=== PATIENT | male | born 1945 | race Caucasian/White ===

== ENCOUNTER → 2022-01-03 10:18 | Outpatient (BNVA) | payer OTHER, MEDICARE, SELFPAY | PROVIDERS: PCP Physician Assistant; Visit Provider Urology | DX: R35.1 Nocturia (principal); N40.1 Benign prostatic hyperplasia with lower urinary tract symptoms; N13.8 Other obstructive and reflux uropathy; Z87.891 Personal history of nicotine dependence; Z88.1 Allergy status to other antibiotic agents; Z88.0 Allergy status to penicillin; Z88.8 Allergy status to other drugs, medicaments and biological substances | CPT/HCPCS: 51798; 99212 ==

== ENCOUNTER → 2022-02-13 11:51 | Outpatient (BNVA) | payer OTHER, SELFPAY | PROVIDERS: PCP Physician Assistant; Visit Provider Urology | DX: N40.1 Benign prostatic hyperplasia with lower urinary tract symptoms (principal) ==

== ENCOUNTER → 2022-02-18 09:35 | Day surgery (SDC) | payer OTHER, SELFPAY ==
--- NOTE | 2022-02-15 12:13 | HO.ANESPROP2 ---
HPI - Anesthesia Eval Consult details Narrative: 76yo M for Laser Ablation Prostate w/Green Light PMFSH Active Problems Active Problems: All Active Problems (Updated 02/12/22 @ 15:56 by Anuja Decker RN) ERNIE (generalized anxiety disorder) (Acute) GERD (gastroesophageal reflux disease) (Acute) Screening for diabetes mellitus (DM) (Acute) Screening for hypercholesterolemia (Acute) Screening for hypothyroidism (Acute) BPH associated with nocturia (Acute) Past Medical History Medical History Anxiety Bifascicular block BPH (benign prostatic hyperplasia) GERD (gastroesophageal reflux disease) Hyperlipidemia Family History Family History Mother No problems noted. Father Substance abuse Surgical History Surgical History History of appendectomy History of cataract surgery History of foot surgery Hx of colonoscopy Hx of hemorrhoidectomy Social History Social History Housing: Condominium Alcohol intake: current Alcohol intake frequency: a few times a month Patient Tobacco Use Status: Former Tobacco user e-Cigarette/Vaping Use: Never Used Second Hand Smoke Exposure: No service: Yes ([employer]) Current occupational status: retired Meds Allergies Allergy/AdvReac Type Severity Reaction Status Date / Time omeprazole [OMEPRAZOLE] Allergy Unknown Diarrhea Verified 02/13/22 12:25 penicillin V Allergy Unknown childhood Verified 02/13/22 12:25 allergy Home Medications Medication Instructions Recorded Confirmed Last Taken Type clonazepam 0.5 mg tablet 0.25 mg PO BID 12/12/20 02/13/22 Unknown History doxepin 100 mg capsule 100 mg PO BEDTIME cap 12/12/20 02/13/22 Unknown History finasteride 5 mg tablet 5 mg PO DAILY 12/12/20 02/13/22 Unknown History pantoprazole 40 mg tablet,delayed 40 mg PO DAILY 12/12/20 02/13/22 Unknown History release trazodone 100 mg tablet 200 mg PO BEDTIME PRN tab 12/12/20 02/13/22 Unknown History Exam Exam Date and Time: February 15, 2022 1213 Narrative Narrative: ECHO 2019 Nml LV systolic function Gr 1 DD Cardiac valves wnl RV systolic pressure is normal No pericardial effusion Assessment and Plan Assessment Anesthesia Assessment: Chart Reviewed
== END ==
PROVIDERS: PCP Physician Assistant; Visit Provider Urology
DX: N40.1 Benign prostatic hyperplasia with lower urinary tract symptoms (principal); Z53.09 Procedure and treatment not carried out because of other contraindication
CPT/HCPCS: J3010

== ENCOUNTER 2024-05-26 10:30 | Outpatient (REF) | payer MEDICARE, SELFPAY ==
[2024-05-26 11:00] LABS: Hematocrit 47.5 % (42.0-52.0); Hemoglobin 16.2 g/dl (14.0-18.0); Mean Corpuscular HGB Conc 34.1 g/dl (31.0-36.0); Mean Corpuscular Hemoglobin 30.8 pg (27.0-33.0); Mean Corpuscular Volume 90.3 fL (80.0-98.0); Mean Platelet Volume 9.3 fL (9.4-12.4); Platelet Count 230 X10*3/uL (160-400); Red Blood Count 5.26 X10*6/uL (4.60-5.80); Red Cell Distribution Width 13.1 % (11.0-16.0); White Blood Count 5.1 X10*3/uL (4.8-10.8)
[2024-05-26 11:53] LABS: Alanine Aminotransferase 19 U/L (0-40); Albumin Level 4.1 g/dL (3.5-5.0); Alkaline Phosphatase 92 U/L (39-117); Anion Gap 9 (12-20); Aspartate Amino Transferase 18 U/L (5-37); Bilirubin Total 0.8 mg/dL (0.0-1.0); Blood Urea Nitrogen 20 mg/dL (9-16); Calcium 9.6 mg/dL (8.4-10.2); Carbon Dioxide 29 mmol/L (22-29); Chloride 107 mmol/L (96-108); Estimated Glomerular Filt Rate > 60; Glucose Fasting 101 mg/dL (60-99); Potassium 4.3 mmol/L (3.3-5.1); Sodium 141 mmol/L (135-145); Total Protein 6.9 g/dL (6.5-8.0)
[2024-05-26 12:05] LABS: Prostate Specific Antigen Scr 2.58 ng/mL (<0.05-4.0)
== END 2024-05-26 10:31 | disposition home or self-care (01) ==
LOC: HO.LAB 10:30
PROVIDERS: PCP Physician Assistant; Visit Provider Physician Assistant
DX: Z13.1 Encounter for screening for diabetes mellitus (principal); K21.9 Gastro-esophageal reflux disease without esophagitis; Z12.5 Encounter for screening for malignant neoplasm of prostate
CPT/HCPCS: 36415; 80053; 84153; 85027

== ENCOUNTER 2024-06-02 14:32 | Outpatient (AMB) | payer MEDICARE, SELFPAY ==
--- NOTE | 2024-06-02 14:46 | A.OFFVIS_ITS ---
Intake Vital Signs 06/02/24 14:47 Height 5 ft 9.5 in Weight 140 lb 4 oz BMI 20.4 BP 102/58 L Blood Pressure Location Lt brachial Position Sitting Pulse 78 Pulse Source Pulse Oximeter Pulse Oximetry (%) 98 Oxygen Delivery Method Room Air Intake Visit Reasons: AWV [place] Required: No Accompanied by: Self / Same As Patient Allergies omeprazole [OMEPRAZOLE] Allergy (Unknown, Verified 06/02/24 14:49) Diarrhea penicillin V Allergy (Unknown, Verified 06/02/24 14:49) childhood allergy Medication List - Last Reconciled 06/02/24 by Curly Gruber PA-C finasteride 5 mg PO DAILY trazodone 200 mg PO BEDTIME PRN HPI AWV HPI Details PATIENT IS A 78-YEAR-OLD MALE HERE TODAY FOR ANNUAL WELLNESS VISIT. PATIENT HAS A PAST MEDICAL HISTORY SIGNIFICANT FOR GERD, GENERALIZED ANXIETY DISORDER AND BPH. Today we discussed his [place] of care and end of life planning. Today we reviewed his comprehensive care plan that was placed into the document Vaccines: Up-to-date with pneumonia, tetanus, shingles and COVID vaccine. Considering flu vaccine this year Colorectal cancer screening: Done in 2013 normal repeat 10 years- has upcoming appointment for repeat colonoscopy with Dr. Aleman HPI Comments History of Present Illness Details reviewed past medical history- yes reviewed surgical / hospitalization history- yes reviewed current medications- yes reviewed family history- yes home safety throw rugs? grab bars? raised toilet seat? working smoke detectors? activities of daily living difficulty bathing or showering? difficulty dressing? difficulty using the toilet? difficulty getting in and out of bed? difficulty walking? receives help from other person's with any of the above tasks? instrumental activities of daily living uses telephone - gets to place out of walking distance- go shopping for groceries- repairs own meals- does own minor home maintenance- does own laundry- does own housework- manages own money- currently takes medication- end of life planning discussed advanced directives- yes advanced directives on file? discussed wishes expressed in advanced directives. fall risk have you had any falls with injuries in the past year? have you had 2 or more falls in the past year? fall risk assessment: [facility] Medical History BPH (benign prostatic hyperplasia) Bifascicular block Hyperlipidemia Anxiety GERD (gastroesophageal reflux disease) Surgical History History of foot surgery History of appendectomy Hx of colonoscopy Hx of hemorrhoidectomy History of cataract surgery Family History Mother No problems noted. Father Substance abuse Social History Housing: Condominium Alcohol intake: current Alcohol intake frequency: a few times a month Patient Tobacco Use Status: Former Tobacco user e-Cigarette/Vaping Use: Never Used Second Hand Smoke Exposure: No service: Yes ([employer]) Current occupational status: retired Questionnaire Medicare Wellness Checkup [age] What gender do you identify with?: male During the past 4 weeks, how much have you been bothered by emotional problems such as feeling anxious, depressed, irritable, sad or downhearted, and blue?: not at all During the past 4 weeks, has your physical & emotional health limited your social activities with family, friends, neighbors, or groups?: not at all During the past 4 weeks, how much bodily pain have you generally had?: no pain During the past 4 weeks, was someone available to help you if you needed & wanted help?: no, not at all Can you get to places out of walking distance without help? (For eg., can you travel alone on buses, taxis or drive your car?): Yes Can you go shopping for groceries or clothes without someone's help?: Yes Can you prepare your own meals?: Yes Can you do your housework without help?: Yes Because of any health problems, do you need the help of another person with your personal care needs such as eating, bathing, dressing or getting around the house?: No Can you handle your own money without help?: Yes During the past 4 weeks, how would you rate your health in general?: good During the past 4 weeks how have things been going for you?: pretty well Are you having difficulties driving your car?: no Do you always fasten your seat belt when you are in a car?: yes, usually During past 4 weeks, have you been bothered by the following: never: Falling or dizzy when standing up, Sexual problems?, Trouble eating well?, Teeth or denture problems?, Problems using the telephone? and Tiredness or fatigue? Have you fallen 2 or more times in the past year?: No Are you afraid of falling?: No Are you a smoker?: no During the past 4 weeks, how many drinks of wine, beer, or other alcoholic beverages did you have?: 2-5 drinks per week Do you exercise for about 20 minutes 3 or more times a week?: no, I usually do not exercise this much Have you been given information to help with the following?: no: Hazards in your house that might hurt you? and no: Keeping track of your medications? How confident are you that you can control & manage most of your health problems?: very confident What is your race?: White Mini Mental State Exam (MMSE) Orientation What is the (year) (season) (date) (day) (month)?: season Where are we (state) (county) (town or city) (hospital) (floor)?: town or city Attention & Calculation (CHOOSE ONE) Spell WORLD backwards (DLROW): 5 letters Score Score: 7 Activity of Daily Living Bathing - sponge bath, tub bath or shower: receives no assistance (gets in/out by self, if usual bathing means Dressing - getting clothes from closets & drawers, including inner/outer garments & fasteners.: gets clothes & gets completely dressed without help Toileting - going to the 'toilet room' for urine/bowel elimination & cleaning self/arranging clothes: goes to toilet room, cleans self, arranges clothes without help Transfer: moves in & out of bed and chair without help (may use support object) Continence: controls urination/bowel movements completely by self Feeding: feeds self without help Total Score: 0 Information obtained from: patient Using telephone: independent Traveling: independent Shopping: independent Preparing meals: independent Housework: independent Taking medicine: independent Managing money: independent PHQ-9 Over the last 2 weeks, how often have you been bothered by any of the following problems? 1. Little interest or pleasure in doing things: not at all 2. Feeling down, depressed, or hopeless: not at all 3. Trouble falling or staying asleep, or sleeping too much: not at all 4. Feeling tired or having little energy: not at all 5. Poor appetite or overeating: not at all 6. Feeling bad about yourself - or that you are a failure or have let yourself or your family down: not at all 7. Trouble concentrating on things, such as reading the newspaper or watching television: not at all 8. Moving or speaking so slowly that other people could have noticed. Or the opposite - being so fidgety or restless that you have been moving around a lot more than usual: not at all 9. Thoughts that you would be better off or of hurting yourself in some way: not at all Total score: 0 Depression Screening Interpretation: Negative Depression Screening Done: Yes 90945 - PHQ-9 Billing: Yes Source: Developed by Drs. Jayson Adam, Marga Armenta, Yogi Fernando and colleagues, with an educational santo from [employer]. Physical Exam Vital Signs: Last Vital Signs Pulse 78 06/02/24 14:47 BP 102/58 L 06/02/24 14:47 Pulse Ox 98 06/02/24 14:47 Oxygen Delivery Method Room Air 06/02/24 14:47 BMI result Body Mass Index 20.4 HEENT Other: hearing screening whisper test- pass Eyes Other: vision screening- 20/ 20 OS OD OU Other: urinary incontinence? no Neuro Other: balance Romberg- normal tandem walk test- able walk-in turned test- able rise from sit to stand- within 2 seconds Assessment & Plan Assessment & Plan (1) Medicare annual wellness visit, subsequent: Code(s): Z00.00 - Encounter for general adult medical examination without abnormal findings Plan: As per HPI Quality Reporting (2020) Depression/Bipolar (159/160/161/177) PHQ-9: Total score: 0 Coding Level of Care Code Medicare First (G0438) Diagnoses Medicare annual wellness visit, subsequent Z00.00 CPT Codes Advance Care Planning - Time spent: 1-15 minutes, on File ([id number]) Advance Care Planning Advance Care Planning discussion: Completed/Scanned Date of discussion: 06/02/24 Forms completed: MOLST Time spent: 1-15 minutes, on File Actual minutes spent: 6
[2024-06-02 14:47] VITALS: BP 102/58; PULSE 78; O2SAT 98; BMI 20.4
== END 2024-06-02 15:24 | disposition home or self-care (01) ==
PROVIDERS: PCP Physician Assistant; Visit Provider Physician Assistant
DX: Z00.00 Encounter for general adult medical examination without abnormal findings (principal)
CPT/HCPCS: 1123F; G0438; G0439

== ENCOUNTER 2024-07-21 14:42 | Outpatient (AMB) | payer MEDICARE, SELFPAY ==
[2024-07-21 15:12] VITALS: BP 110/72; PULSE 62; O2SAT 98; BMI 20.1
--- NOTE | 2024-07-21 15:12 | AM.OFFWIN_ITS ---
Intake Vital Signs 07/21/24 15:12 Height 5 ft 9.5 in Weight 138 lb BMI 20.1 BP 110/72 Blood Pressure Location Rt brachial Position Sitting Pulse 62 Pulse Source Pulse Oximeter Pulse Oximetry (%) 98 Oxygen Delivery Method Room Air Intake Visit Reasons: EP- rt foot pain from a fall Intake Note: Patient here for right foot pain after a fall. Right foot is very swollen and has been trying to soak foot in cold water. Patient Tobacco Use Status: Former Tobacco user Allergies omeprazole [OMEPRAZOLE] Allergy (Unknown, Verified 07/21/24 15:14) Diarrhea penicillin V Allergy (Unknown, Verified 07/21/24 15:14) childhood allergy Do you need a note to return to daycare/school/sports/work: No HPI EP- rt foot pain from a fall HPI Details This note is constructed using voice recognition software. While every effort has been made to ensure accuracy, pharmacy service associate errors may have been included. The patient is a 78 year old male who presents to the clinic today with right foot and ankle pain after a fall yesterday. He reports that he typically goes up and down the stairs as he lives on the 4th floor, and on a routine basis goes up and down for extra exercise. He notes that he had missed change to his footing and slipped, and when he fell he noticed he had increased swelling in his right foot and ankle. The pain is more medial, and inferior to the malleolus. [facility] Medical History BPH (benign prostatic hyperplasia) Bifascicular block Hyperlipidemia Anxiety GERD (gastroesophageal reflux disease) Surgical History History of foot surgery History of appendectomy Hx of colonoscopy Hx of hemorrhoidectomy History of cataract surgery Family History Mother No problems noted. Father Substance abuse Social History Housing: Condominium Alcohol intake: current Alcohol intake frequency: a few times a month Patient Tobacco Use Status: Former Tobacco user e-Cigarette/Vaping Use: Never Used Second Hand Smoke Exposure: No service: Yes ([employer]) Current occupational status: retired Review of Systems Const All systems reviewed & are unremarkable except as noted in HPI and below Physical Exam Vital Signs: Last Vital Signs Pulse 62 07/21/24 15:12 BP 110/72 07/21/24 15:12 Pulse Ox 98 07/21/24 15:12 Oxygen Delivery Method Room Air 07/21/24 15:12 BMI result Body Mass Index 20.1 Const General: cooperative, healthy appearing, comfortable, no acute distress and well developed Orientation/consciousness: patient oriented x3 Limitations: no limitations Resp Effort & Inspection: normal respiratory effort and able to speak in complete sentences Skin General skin exam: no rashes or lesions noted Neuro General: patient oriented x3 Extrem Other: Reduced flexion and extension of the right ankle, edema present throughout entire ankle. Tenderness to palpation along right medial inferior malleolus. no ecchymosis, erythema. Results Reviewed Results Reviewed: XR images contemporaneously read by me without obvious findings of fracture. Assessment & Plan Assessment & Plan (1) Moderate right ankle sprain: Code(s): S93.401A - Sprain of unspecified ligament of right ankle, initial encounter Qualifiers: Encounter type: initial encounter Qualified Code(s): S93.401A - Sprain of unspecified ligament of right ankle, initial encounter Plan: Advised rest, ice, compression, elevation. Patient placed in boot for improved mobility. Advised follow up with worsening or failure to resolve. Patient provided extensive education on injury care as he has not previously had any injuries. Plan See above for full details and plan. Orders: Orders XR foot RT min 3V Today M79.671 - Pain in right foot Coding Level of Care Code Est Pt Level 4 (32246) Diagnoses Moderate right ankle sprain, initial encounter S93.401A Encounter type: initial encounter
== END 2024-07-21 16:45 | disposition home or self-care (01) ==
PROVIDERS: PCP Physician Assistant; Visit Provider Registered Nurse
DX: S93.401A Sprain of unspecified ligament of right ankle, initial encounter (principal)

== ENCOUNTER → 2024-07-21 14:42 | Outpatient (BNVA) | payer MEDICARE, SELFPAY | PROVIDERS: PCP Physician Assistant ==

== ENCOUNTER 2024-07-21 15:37 | Outpatient (REF) | payer MEDICARE, SELFPAY ==
--- NOTE | ~2024-07-21 | XR_ITS ---
EXAMINATION: RIGHT ANKLE, RIGHT FOOT CLINICAL INFORMATION: Right ankle and foot pain COMPARISON: None available. TECHNIQUE: 3 views right ankle, 3 views right foot FINDINGS: There is bilateral soft tissue swelling present. The ankle mortise appears stable. A small ankle joint effusion is present. There is a shortened proximal phalanx of the second toe with a ovoid osseous body anterior to this. Please correlate with any history of prior surgery. Findings could be secondary to osteonecrosis. No acute fractures or bony destructive lesions are seen. Some mild degenerative changes are seen at interphalangeal joints. XR/XR ankle RT 2V IMPRESSION: 1. No acute finding. 2. Shortened proximal phalanx of the second toe with ovoid osseous body anterior to this. Please correlate with any history of prior surgery with other considerations discussed above. Electronically signed by: Mitch Austin MD 07/22/2024 10:31 AM EDT
--- NOTE | ~2024-07-21 | XR_ITS ---
EXAMINATION: RIGHT ANKLE, RIGHT FOOT CLINICAL INFORMATION: Right ankle and foot pain COMPARISON: None available. TECHNIQUE: 3 views right ankle, 3 views right foot FINDINGS: There is bilateral soft tissue swelling present. The ankle mortise appears stable. A small ankle joint effusion is present. There is a shortened proximal phalanx of the second toe with a ovoid osseous body anterior to this. Please correlate with any history of prior surgery. Findings could be secondary to osteonecrosis. No acute fractures or bony destructive lesions are seen. Some mild degenerative changes are seen at interphalangeal joints. XR/XR foot RT min 3V IMPRESSION: 1. No acute finding. 2. Shortened proximal phalanx of the second toe with ovoid osseous body anterior to this. Please correlate with any history of prior surgery with other considerations discussed above. Electronically signed by: Mitch Austin MD 07/22/2024 10:31 AM EDT
== END 2024-07-21 15:38 | disposition home or self-care (01) ==
LOC: HO.HMGCX 15:37
PROVIDERS: PCP Physician Assistant; Referring Provider Internal Medicine; Visit Provider Registered Nurse
DX: S93.401A Sprain of unspecified ligament of right ankle, initial encounter (principal)
CPT/HCPCS: 73600; 73630; 99212

== ENCOUNTER 2024-07-27 14:44 | Outpatient (AMB) | payer MEDICARE, SELFPAY ==
--- NOTE | 2024-07-27 14:59 | A.OFFPC_ITS ---
Vital Signs 3 07/27/24 15:00 Height 5 ft 9.5 in Weight 139 lb 4 oz BMI 20.3 BP 140/86 H Blood Pressure Location Lt brachial Position Sitting Pulse 57 Pulse Source Pulse Oximeter Pulse Oximetry (%) 96 Oxygen Delivery Method Room Air Intake Visit Reasons: swollen ankle/ painful Intake Note: Patient is here to follow up on swollen right ankle with pain. Pharmacogeneticist Required: No Furniture Assembler And Installer: Not Required per policy Accompanied by: Self / Same As Patient Allergies omeprazole [OMEPRAZOLE] Allergy (Unknown, Verified 07/27/24 15:17) Diarrhea penicillin V Allergy (Unknown, Verified 07/27/24 15:17) childhood allergy Medication List - Last Reconciled 07/27/24 by Curly Gruber PA-C ibuprofen 600 mg PO Q8H 7 days trazodone 200 mg PO BEDTIME PRN Tobacco use date assessed: 07/27/24 Fall risk assessment: No Falls in past year Last assessed Fall Risk: 07/27/24 Dental Screening Dental Screen Date: 07/27/24 Did you have a dental visit in the last 12 months?: Yes Did you have a dental problem in the last 6 months where you did not have access to dental care?: No Was dental information given to patient?: Patient has dentist HPI swollen ankle/ painful 2 HPI0 Details Parish is a 78-year-old male here today for a follow-up visit. Was seen at the walk-in clinic a few days ago for acute right ankle and foot pain after a fall he reports he missed a step in his home and fell injuring his ankle. X-ray did not show any acute fractures. Patient has been using an Aircast and soaking his foot and ankle in cool water. He has been using acetaminophen though no anti-inflammatories. [facility] Medical History BPH (benign prostatic hyperplasia) Bifascicular block Hyperlipidemia Anxiety GERD (gastroesophageal reflux disease) Surgical History History of foot surgery History of appendectomy Hx of colonoscopy Hx of hemorrhoidectomy History of cataract surgery Family History Mother No problems noted. Father Substance abuse Social History Housing: Condominium Alcohol intake: current Alcohol intake frequency: a few times a month Patient Tobacco Use Status: Former Tobacco user e-Cigarette/Vaping Use: Never Used Second Hand Smoke Exposure: No service: Yes ([employer]) Current occupational status: retired Cognitive needs: No Hearing needs: No Vision needs: No Questionnaire Thrive Questionnaire Date Thrive assessed: 05/14/22 ERNIE-7 AMB Questionnaire ERNIE-7 Date ERNIE - 7 assessed: 07/27/24 Feeling nervous, anxious, or on edge: 0 = Not at all Not being able to stop or control worryin = Not at all Worrying too much about different things: 0 = Not at all Trouble relaxin = Not at all Being so restless that it is hard to sit still: 0 = Not at all Becoming easily annoyed or irritable: 0 = Not at all Feeling afraid as if something awful might happen: 0 = Not at all Total ERNIE-7 score (0-4 normal; 5-9 mild; 10-14 moderate; 15-21 severe): 0 Source: Developed by Drs. Jayson Adam, Marga Armenta, Yogi Fernando and colleagues, with an educational santo from [employer]. ERNIE-7 Assessment Billing ERNIE-7 Assessment Tool: ERNIE-7 Assessment 34299 Review of Systems Const Denies headache(s) Eyes Denies loss of vision ENT Denies vertigo, Denies dizziness, Denies headache(s) and Denies sore throat Card Denies chest pain, Denies leg edema and Denies lightheadedness Resp Denies cough, Denies hemoptysis and Denies wheezing GI Denies abdominal pain, Denies melena, Denies constipation, Denies diarrhea and Denies vomiting Denies dysuria, Denies urinary frequency and Denies urinary urgency Musc Denies arthralgias, Denies joint swelling, Denies numbness and Denies tingling Neuro Denies Abnormal speech present, Denies behavioral changes, Denies vertigo, Denies dizziness, Denies headache(s), Denies loss of vision, Denies memory loss, Denies numbness and Denies tingling Psych Denies anxiety, Denies behavioral changes, Denies depression, Denies memory loss and Denies panic attacks Nelson/Lymph Denies easy bleeding and Denies easy bruising Aller/Immun Denies wheezing Physical exam (Primary Care) Vital Signs: Last Vital Signs Pulse 57 07/27/24 15:00 BP 140/86 H 07/27/24 15:00 Pulse Ox 96 07/27/24 15:00 Oxygen Delivery Method Room Air 07/27/24 15:00 BMI result Body Mass Index 20.3 Tobacco/Smoking Status: Tobacco use Status Tobacco use date assessed 07/27/24 07/27/24 15:06 Patient Tobacco Use Status Former Tobacco user 07/27/24 15:06 e-Cigarette/Vaping Use Never Used 07/27/24 15:06 Thrive Assessment: Date of Thrive Assessment Date Thrive assessed 05/14/22 07/27/24 15:06 Const General: healthy appearing, no acute distress, alert and awake Nutritional Appearance: well nourished Orientation/consciousness: oriented to person, oriented to place and oriented to time HENMT Ears: TM's normal bilaterally General nose exam: Normal nasal mucous membranes and turbinates present Eyes Conjunctivae: conjunctivae normal Sclerae: sclerae normal Pupils: Equal, round and reactive pupils present Neck Neck: Yes no lymphadenopathy and Yes no JVD Thyroid: Thyroid normal Carotids: no bruits Resp Effort & Inspection: normal respiratory effort and not tachypneic Auscultation: no crackles, no rales, no rhonchi and no wheezes Cardio Rate: regular rate Rhythm: regular rhythm Heart sounds: no murmurs and normal S1 and S2 GI Palpation (GI): Soft to palpation, nontender, no hepatomegaly and no splenomegaly Auscultation: normal bowel sounds Skin General skin exam: no rashes or lesions noted and dry skin Neuro General: oriented to person, oriented to place and oriented to time Cranial nerves: Yes Equal, round and reactive pupils present Speech: No Abnormal speech present Gait exam (Neuro): Normal gait present Motor exam (neuro): no tremor noted Extrem Right upper extremity: full ROM Left upper extremity: full ROM Right lower extremity: full ROM; no edema Left lower extremity: full ROM; no edema Ankle/foot/toe images: 2 1. NOTABLE EDEMA TO THE RIGHT ANKLE PARTICULARLY ON MEDIAL ASPECT Psych Mental Status: mental status grossly normal Speech and movement: Normal speech and movement present Affect: normal affect Attitude: cooperative Thought process: Normal thought process present Coding Level of Care Code Est Pt Level 3 (36196) Diagnoses Sprain of tibiofibular ligament of left ankle, subsequent encounter S93.432D Encounter type: subsequent encounter Involved ligament of ankle: tibiofibular ligament Additional Codes ERNIE-7 Assessment Billing - ERNIE-7 Assessment Tool: ERNIE-7 Assessment 04642 ([id number]) Assessment & Plan Assessment & Plan (1) Left ankle sprain: Code(s): S93.402A - Sprain of unspecified ligament of left ankle, initial encounter Category: Medical Qualifiers: Encounter type: subsequent encounter Involved ligament of ankle: t ibiofibular ligament Qualified Code(s): S93.432D - Sprain of tibiofibular ligament of left ankle, subsequent encounter Plan: Patient's seems to have pretty significant ankle sprain in the medial aspect of his ankle. Will likely get better with conservative treatment such as elevation icing NSAIDs. He is wearing a aircast at this time for the next 2 weeks. He will call if pain and swelling get worse and will consider CT or MRI of the ankle to evaluate for an occult fracture. Medications: Refilled 2 ibuprofen 600 mg PO Q8H 7 days 21 tabs 0RF pain S93.402A - Sprain of unspecified ligament of left ankle, initial encounter
[2024-07-27 15:00] VITALS: BP 140/86; PULSE 57; O2SAT 96; BMI 20.3
== END 2024-07-27 15:54 | disposition home or self-care (01) ==
PROVIDERS: PCP Physician Assistant; Visit Provider Physician Assistant
DX: S93.432D Sprain of tibiofibular ligament of left ankle, subsequent encounter (principal)

== ENCOUNTER → 2024-07-27 14:44 | Outpatient (BNVA) | payer MEDICARE, SELFPAY | PROVIDERS: PCP Physician Assistant; Visit Provider Physician Assistant | DX: S93.432D Sprain of tibiofibular ligament of left ankle, subsequent encounter (principal) | CPT/HCPCS: 96127; 99212 ==

== ENCOUNTER 2024-10-04 09:59 | Outpatient (RCR) | payer MEDICARE, SELFPAY | END 2024-11-09 12:36 | disposition home or self-care (01) | LOC: HO.PT 09:59 | PROVIDERS: PCP Physician Assistant; Visit Provider Physician Assistant | DX: S93.402D Sprain of unspecified ligament of left ankle, subsequent encounter (principal) ==

== ENCOUNTER 2025-03-21 14:36 | Outpatient (AMB) | payer MEDICARE, SELFPAY ==
[2025-03-21 14:53] VITALS: BP 144/82; PULSE 68; TEMP 36.3; O2SAT 96; BMI 20.4
--- NOTE | 2025-03-21 14:53 | MHC.PC.OV ---
Vital Signs 03/21/25 14:53 Height 5 ft 9.5 in Weight 140 lb 6 oz BMI 20.4 BP 144/82 H Blood Pressure Location Lt brachial Position Sitting Pulse 68 Pulse Source Pulse Oximeter Temp 97.3 F Temp Source Temporal Artery Scan Pulse Oximetry (%) 96 Oxygen Delivery Method Room Air Intake Visit Reasons: Patient reports ears feeling blocked or clogged. 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 Accompanied by: Self / Same As Patient Allergies omeprazole (OMEPRAZOLE) Allergy (Unknown, Verified 03/21/25 15:18) Diarrhea penicillin V Allergy (Unknown, Verified 03/21/25 15:18) childhood allergy Medication List - Last Reconciled 03/21/25 by Curly Gruber PA-C ibuprofen 600 mg PO Q8H 7 days trazodone 200 mg PO BEDTIME PRN Tobacco use date assessed: 03/21/25 Fall risk assessment: No Falls in past year Last assessed Fall Risk: 03/21/25 Dental Screening Dental Screen Date: 03/21/25 Did you have a dental visit in the last 12 months?: Yes Did you have a dental problem in the last 6 months where you did not have access to dental care?: No Was dental information given to patient?: Patient has dentist HPI Patient reports ears feeling blocked or clogged. HPI Details Patient is a 79-year-old male here today for bilateral ear sensation of congestion. He reports he has been using a plastic tool to remove ear wax though reports his right ear feels completely block now. [facility] Medical History BPH (benign prostatic hyperplasia) Bifascicular block Hyperlipidemia Anxiety GERD (gastroesophageal reflux disease) Surgical History History of foot surgery History of appendectomy Hx of colonoscopy Hx of hemorrhoidectomy History of cataract surgery Family History Mother No problems noted. 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 1. Little interest or pleasure in doing things: not at all 2. Feeling down, depressed, or hopeless: not at all 3. Trouble falling or staying asleep, or sleeping too much: not at all 4. Feeling tired or having little energy: not at all 5. Poor appetite or overeating: not at all 6. Feeling bad about yourself - or that you are a failure or have let yourself or your family down: not at all 7. Trouble concentrating on things, such as reading the newspaper or watching television: not at all 8. Moving or speaking so slowly that other people could have noticed. Or the opposite - being so fidgety or restless that you have been moving around a lot more than usual: not at all 9. Thoughts that you would be better off or of hurting yourself in some way: not at all Total score: 0 Depression Screening Interpretation: Negative Depression Screening Done: Yes 72671 - PHQ-9 Billing: Yes Source: Developed by Drs. Jayson Adam, Marga Armenta, Yogi Fernando and colleagues, with an educational santo from [employer]. Thrive Questionnaire Date Thrive assessed: 03/21/25 I am a: Patient What is your living situation today?: I choose not to answer this question Within the past 12 months, did the food you bought not last and you didn't have the money to get more?: I choose not to answer this question Within the past 12 months, did you worry whether your food would run out before you got money to buy more?: I choose not to answer this question Do you have trouble paying for medicines?: I choose not to answer this question Do you have trouble getting transportation to medical appointments?: I choose not to answer this question Do you have trouble paying your heating and electricity bill?: I choose not to answer this question Do you have trouble taking care of your child, family member or friend?: I choose not to answer this question Do you have trouble with day-to-day activities such as bathing, preparing meals, shopping, managing finances, etc.?: I choose not to answer this question Are you currently unemployed and looking for a job?: I choose not to answer this question Are you interested in more education?: I choose not to answer this question Please select the resources that you would like help with: None Currently or been in a relationship where the following occur: I choose not to answer THRIVE Score: 0 AUDIT C Alcohol Use Questionnaire (AUDIT-C) 1. How often do you have a drink containing alcohol?: Never 3. How often do you have six or more drinks on one occasion?: Never Total Score: 0 ERNIE-7 AMB Questionnaire ERNIE-7 Date ERNIE - 7 assessed: 03/21/25 Feeling nervous, anxious, or on edge: 0 = Not at all Not being able to stop or control worryin = Not at all Worrying too much about different things: 0 = Not at all Trouble relaxin = Not at all Being so restless that it is hard to sit still: 0 = Not at all Becoming easily annoyed or irritable: 0 = Not at all Feeling afraid as if something awful might happen: 0 = Not at all Total ERNIE-7 score (0-4 normal; 5-9 mild; 10-14 moderate; 15-21 severe): 0 Source: Developed by Drs. Jayson Adam, Marga Armenta, Yogi Fernando and colleagues, with an educational santo from [employer]. ERNIE-7 Assessment Billing ERNIE-7 Assessment Tool: ERNIE-7 Assessment 86626 Review of Systems Const Denies headache(s) Eyes Denies loss of vision ENT Denies vertigo, Denies dizziness, Denies headache(s) and Denies sore throat Card Denies chest pain, Denies leg edema and Denies lightheadedness Resp Denies cough, Denies hemoptysis and Denies wheezing GI Denies abdominal pain, Denies melena, Denies constipation, Denies diarrhea and Denies vomiting Denies dysuria, Denies urinary frequency and Denies urinary urgency Musc Denies arthralgias, Denies joint swelling, Denies numbness and Denies tingling Neuro Denies Abnormal speech present, Denies behavioral changes, Denies vertigo, Denies dizziness, Denies headache(s), Denies loss of vision, Denies memory loss, Denies numbness and Denies tingling Psych Denies anxiety, Denies behavioral changes, Denies depression, Denies memory loss and Denies panic attacks Nelson/Lymph Denies easy bleeding and Denies easy bruising Aller/Immun Denies wheezing Physical exam (Primary Care) Vital Signs: Last Vital Signs Temp 97.3 F 03/21/25 14:53 Pulse 68 03/21/25 14:53 BP 144/82 H 03/21/25 14:53 Pulse Ox 96 03/21/25 14:53 Oxygen Delivery Method Room Air 03/21/25 14:53 BMI result Body Mass Index 20.4 Tobacco/Smoking Status: Tobacco use Status Tobacco use date assessed 03/21/25 03/21/25 14:59 Patient Tobacco Use Status Former Tobacco user 03/21/25 14:57 e-Cigarette/Vaping Use Never Used 03/21/25 14:57 PHQ-9: PHQ-9 Score PHQ-9: Total score 0 03/21/25 15:37 Depression Screening Interpretation: Negative Thrive Assessment: Date of Thrive Assessment Date Thrive assessed 03/21/25 03/21/25 14:59 Currently or been in a relationship where the following occur: I choose not to answer Const General: healthy appearing, no acute distress, alert and awake Nutritional Appearance: well nourished Orientation/consciousness: oriented to person, oriented to place and oriented to time HENMT Other: RIGHT EXTERNAL CANAL: CERUMEN IMPACTION NOTED, CLEAR AFTER LAVAGE. Ears: TM's normal bilaterally General nose exam: Normal nasal mucous membranes and turbinates present Eyes Conjunctivae: conjunctivae normal Sclerae: sclerae normal Pupils: Equal, round and reactive pupils present Neck Neck: Yes no lymphadenopathy and Yes no JVD Thyroid: Thyroid normal Carotids: no bruits Resp Effort & Inspection: normal respiratory effort and not tachypneic Auscultation: no crackles, no rales, no rhonchi and no wheezes Cardio Rate: regular rate Rhythm: regular rhythm Heart sounds: no murmurs and normal S1 and S2 GI Palpation (GI): Soft to palpation, nontender, no hepatomegaly and no splenomegaly Auscultation: normal bowel sounds Skin General skin exam: no rashes or lesions noted and dry skin Neuro General: oriented to person, oriented to place and oriented to time Cranial nerves: Yes Equal, round and reactive pupils present Speech: No Abnormal speech present Gait exam (Neuro): Normal gait present Motor exam (neuro): no tremor noted Extrem Right upper extremity: full ROM Left upper extremity: full ROM Right lower extremity: full ROM; no edema Left lower extremity: full ROM; no edema Psych Mental Status: mental status grossly normal Speech and movement: Normal speech and movement present Affect: normal affect Attitude: cooperative Thought process: Normal thought process present Office Procedures Cerumen Removal From which ear canal was the cerumen removed: right Removal: irrigation and otoscope w/curette Notes: patient tolerated procedure well 48619-Pft Irrigation/Lavage Coding Level of Care Code Est Pt Level 3 (04063) Diagnoses Impacted cerumen of right ear H61.21 CPT Codes Office Procedure - CPT: 77700-Rkr Irrigation/Lavage ([id number]) Additional Codes ERNIE-7 Assessment Billing - ERNIE-7 Assessment Tool: ERNIE-7 Assessment 95998 ([id number]) PHQ-9 - 72867 - PHQ-9 Billing: Yes ([id number]) Assessment & Plan Assessment & Plan (1) Impacted cerumen of right ear: Code(s): H61.21 - Impacted cerumen, right ear Category: Medical Plan: As per office visit procedure note Large amount of ear cerumen removed from right ear. Orders: Orders Comprehensive [place]. Panel Fast 03/21/25 Z13.1 - Encounter for screening for diabetes mellitus Complete Blood Count no Diff 03/21/25 Z13.1 - Encounter for screening for diabetes mellitus Prostate Specific Antigen Scr 03/21/25 N40.1 - Benign prostatic hyperplasia with lower urinary tract symptoms, R35.1 - Nocturia, Z12.5 - Encounter for screening for malignant neoplasm of prostate
== END 2025-03-21 15:47 | disposition home or self-care (01) ==
LOC: HO.HMCH 14:37
PROVIDERS: PCP Physician Assistant; Visit Provider Physician Assistant
DX: H61.21 Impacted cerumen, right ear (principal)

== ENCOUNTER → 2025-03-21 14:36 | Outpatient (BNVA) | payer MEDICARE, SELFPAY | PROVIDERS: PCP Physician Assistant; Visit Provider Physician Assistant | DX: H61.21 Impacted cerumen, right ear (principal); Z13.31 Encounter for screening for depression | CPT/HCPCS: 69210; 96127; 99212 ==